=== PATIENT | female | born 1955 | race Caucasian/White ===

== ENCOUNTER → 2016-05-09 | Outpatient (CLI) | payer OTHER ==
[2016-05-09 13:24] LABS: BUN/CREATININE RATIO 24 (0-10)
== END ==
LOC: CT 12:39
PROVIDERS: Nurse Practitioner Family
DX: R91.1 Solitary pulmonary nodule (principal)
CPT/HCPCS: 36415; 71260; 80053; J7050; Q9962

== ENCOUNTER → 2021-04-18 | Outpatient (CLI) | payer OTHER | LOC: EMI 03-13 14:00 | DX: G89.0 Central pain syndrome (principal); I63.81 Other cerebral infarction due to occlusion or stenosis of small artery; G35 Multiple sclerosis; G47.69 Other sleep related movement disorders; J32.0 Chronic maxillary sinusitis | CPT/HCPCS: 70553; A9577 ==